=== PATIENT | male | born 1985 | race Caucasian/White ===

== ENCOUNTER 2019-10-20 19:29 | Emergency (ER) | payer MEDICAID ==
[~2019-10-20] VITALS: Ht 167.6 cm; Wt 79.4 kg
[2019-10-20 19:53] VITALS: BP_SYST 109
--- NOTE | 2019-10-20 20:00 | NUR ---
Patient triaged and placed in waiting room. VSS and patient appears in no acute distress at this time. Awaiting available bed, and MD notified of need for MSE.
--- NOTE | 2019-10-20 22:53 | NUR ---
Patient to ER bed 6 to gown for evaluation. Side rails up. Report given to Calvin SHRESTHA.
--- NOTE | 2019-10-20 23:00 | NUR ---
ER at bedside examining patient.
--- NOTE | 2019-10-20 23:00 | NUR ---
Pt brought in by self. Awake, alert, Oriented x4. Pt states that he had chief complaint of R hand cellulitis. Pt states he is a heroin user and he was trying to check himself into [facility], but they refused until he gets medical clearance. Pt states that he recently injected heroin into his hand and now he had swelling, purulent drainage and pain. Pt denies any other medical complaint at this time. Pt VSS
[2019-10-20] MEDS ORDERED: NACL 0.9% 1,000 ML IV ONE (23:07)
[2019-10-20] MEDS ORDERED: PIPERACILLIN/TAZO 3.38 GM in D5W 50 ML IV ONE (23:15)
[2019-10-20] MEDS ORDERED: NS 1000 ML IV.SOLN IV ONE (23:15)
--- NOTE | 2019-10-21 00:20 | NUR ---
Pt resting in ED bed. No acute distress. Tolerating IV antibiotics and Fluids
--- NOTE | 2019-10-21 00:45 | NUR ---
Pt refused Urine. States he is unable to provide at this time.
[2019-10-21 00:56] LABS: BASOPHILS # (AUTO) 0.1 K/uL (0.0-0.2); BASOPHILS % (AUTO) 0.6 % (0.0-2.0); EOSINOPHILS # (AUTO) 0.3 K/uL (0.0-0.4); EOSINOPHILS % (AUTO) 2.6 % (0.0-4.0); HEMATOCRIT 39.5 % (36-54); HEMOGLOBIN 13.5 g/dL (14.0-18.0); MEAN CORPUSCULAR HEMOGLOBIN 30 pg (27-31); MEAN CORPUSCULAR HGB CONC 34 % (32-36); MEAN CORPUSCULAR VOLUME 89 fL (79.0-98.0); MONOCYTES # (AUTO) 0.7 K/uL (0.0-1.0); MONOCYTES % (AUTO) 6.1 % (1.7-9.3); NEUTROPHILS # (AUTO) 8.3 K/uL (1.8-7.7); NEUTROPHILS % (AUTO) 72.7 % (40.0-70.0); PLATELET COUNT (AUTO) 199 K/uL (130-430); RED BLOOD CELL COUNT(AUTO) 4.42 MIL/uL (4.2-6.2); RED CELL DISTRIBUTION WIDTH 12.5 % (9.0-15.0); WHITE BLOOD COUNT (AUTO) 11.4 K/uL (4.8-10.8)
[2019-10-21] MEDS ORDERED: PIPERACILLIN/TAZOBACTAM 3.375 GM/VIAL (ZOSYN) IV ONE (01:04)
[2019-10-21 01:15] LABS: ANION GAP 9 (5-15); CHLORIDE 97 mmol/L (98-107); CREATININE 0.76 mg/dL (0.55-1.30); GLUCOSE 112 mg/dL (70-99); SODIUM SERUM 135 mmol/L (136-145); UREA NITROGEN, BLOOD 8 mg/dL (8-21)
[2019-10-21 01:16] LABS: INR 1.1 (0.80-1.20); PROTHROMBIN TIME 11.2 SECS (9.5-12.5)
[2019-10-21 01:19] LABS: ALANINE AMINOTRANSFERASE 17 U/L (12-78); ALBUMIN 3.3 g/dL (3.4-4.8); ASPARTATE AMINOTRANSFERASE 9 U/L (10-37); CHOLESTEROL 96 mg/dL (<200); HDL CHOLESTEROL 35 mg/dL (>45); LDL CHOLESTEROL 48 mg/dL (<100); LIPASE 40 U/L (73-393); TOTAL BILIRUBIN 0.8 mg/dL (0.0-1.0); TRIGLYCERIDES 76 mg/dL (30-150)
[2019-10-21 01:20] LABS: ALCOHOL, BLOOD < 3 mg/dL (<10); GFR AFRICAN AMERICAN 152 mL/min (>90)
--- NOTE | 2019-10-21 01:45 | NUR ---
Pt Resting in ed bed. tolerating Iv fluids well
--- NOTE | 2019-10-21 02:57 | NUR ---
Patient given written and verbal discharge instructions and verbalizes understanding. ER MD Diego discussed with patient the results and treatment provided. Patient in stable condition. ID arm band removed. IV catheter removed intact and dressing applied, no active bleeding. Rx of Tylenol, Keflex given. Patient educated on pain management and to follow up with PMD. Pain Scale 0. Opportunity for questions provided and answered. Medication side effect fact sheet provided.
[2019-10-21 02:58] VITALS: BP_SYST 122
== END 2019-10-21 02:58 | disposition home or self-care (01) ==
LOC: SED 19:29
DX: L03.113 Cellulitis of right upper limb (principal); F11.10 Opioid abuse, uncomplicated; F15.10 Other stimulant abuse, uncomplicated
CPT/HCPCS: 36415; 71045; 80053; 80061; 82550; 83036; 83605; 83690; 84484; 85025; 85610; 85730; 87040; 93005; 96365; 99285; G0481; G0482; J2543; J7030